=== PATIENT | female | born 1955 | race Caucasian/White ===

== ENCOUNTER → 2016-06-28 | Outpatient (CLI) | payer OTHER ==
[2016-06-28 14:22] LABS: EKG EKG PERFORMED
[2016-06-28 15:13] LABS: Basophils # (A) 0.1 k/uL (0-0.2); Basophils % (A) 1 %; CH 30.1; CHCM 33.8; Eosinophils % (A) 1 %; HCT 40.1 % (34.0-46.0); HGB 13.2 gm/dL (11.4-16.0); Luc # (Auto) 0.11; Luc % (Auto) 2; Lymphocytes # (A) 1.6 k/uL (1.0-4.8); Lymphocytes % (A) 30 %; MCH 29.4 pg (25.0-35.0); MCHC 32.8 g/dL (31.0-37.0); MCV 89.6 fL (80.0-100.0); Mean Platelet Volume 7.2; Monocytes # (A) 0.4 k/uL (0-1.0); Monocytes % (A) 7 %; Neutrophils # (A) 3.1 k/uL (1.3-7.7); Neutrophils % (A) 60 %; RBC 4.47 m/uL (3.80-5.40); RDW 12.5 % (11.5-15.5); WBC 5.2 k/uL (3.8-10.6); WBC (Perox) 5.32
[2016-06-28 15:31] LABS: Anion Gap 10 mmol/L; Blood Urea Nitrogen 16 mg/dL (7-17); Calcium 9.7 mg/dL (8.4-10.2); Carbon Dioxide 29 mmol/L (22-30); Chloride 103 mmol/L (98-107); Glucose 80 mg/dL (74-99); Non-African American GFR(MDRD) >60 (>60 ml/min/1.73 sqM); Potassium 4.3 mmol/L (3.5-5.1); Sodium 142 mmol/L (137-145)
== END | disposition home or self-care (01) ==
LOC: LABPAT 14:08
PROVIDERS: ATTEND Obstetrics & Gynecology
DX: Z01.818 Encounter for other preprocedural examination (principal)
CPT/HCPCS: 80048; 85025; 93005

== ENCOUNTER 2016-07-06 05:51 | Inpatient (IN) | payer OTHER ==
--- NOTE | 2016-07-05 16:54 | P.HPOB ---
History of Present Illness H&P Date: 07/05/16 Chief Complaint: Uterine procidentia This is a 61-year-old female 1 para 1 who presents for total vaginal hysterectomy with anterior and posterior vaginal repair secondary to complete uterine procidentia. She complains of a vaginal mass along with urinary hesitancy. She denies any urinary incontinence, constipation, urinary tract infections, or vaginal irritation. She does complain of urinary frequency. Her symptoms have worsened over the last year. She would like definitive surgical treatment to control her prolapse issues. Pelvic ultrasound showed a uterus measuring 5.2 x 2.1 x 3.3 cm and retroverted. Endometrial stripe measured 3 mm. Both ovaries appeared normal. Obstetrical history: She is . She has a history of 1 vaginal delivery. She also has a set of adopted twins. Gynecologic history: No history of sexual transmitted diseases. Onset of menses was at age 13 and menopause at age 48. Social history: She is . 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 Review of Systems Constitutional: Denies chills, Denies fever Cardiovascular: Denies chest pain, Denies shortness of breath Respiratory: Denies cough Gastrointestinal: Reports constipation (Occasional), Denies nausea, Denies vomiting Genitourinary: Reports difficulty voiding (Occasional urinary hesitancy), Reports pelvic pain, Reports prolapse symptoms, Reports urinary frequency, Denies abnormal vaginal bleeding, Denies stress incontinence, Denies vaginal discharge Menstruation: Reports postmenopausal Musculoskeletal: Denies myalgias Integumentary: Denies pruritus, Denies rash Neurological: Denies numbness, Denies weakness Psychiatric: Denies anxiety, Denies depression Endocrine: Denies fatigue, Denies weight change Past Medical History Past Medical History: Hypertension Additional Past Medical History / Comment(s): change in bowel habits for 5 weeks , just started on BP medication; osteopenia; history of pleurisy History of Any Multi-Drug Resistant Organisms: None Reported Past Surgical History: Tonsillectomy Additional Past Surgical History / Comment(s): Laparoscopy (ENDOMETRIOSIS). Colonoscopy Past Anesthesia/Blood Transfusion Reactions: Previous Problems w/ Anesthesia Additional Past Anesthesia/Blood Transfusion Reaction / Comment(s): Very slow to wake up from anesthesia Past Psychological History: No Psychological Hx Reported Smoking Status: Never smoker Past Alcohol Use History: None Reported Past Drug Use History: None Reported - Past Family History Mother Family Medical History: Cancer Additional Family Medical History / Comment(s): colon Father Family Medical History: Cancer Medications and Allergies Home Medications Medication Instructions Recorded Confirmed Type Lisinopril [Zestril] 5 mg PO QAM 11/04/15 06/28/16 History Multivit with Calcium,Iron,Min 1 each PO DAILY 11/04/15 06/28/16 History [Women's Daily Multivitamin] Allergies Allergy/AdvReac Type Severity Reaction Status Date / Time Penicillins Allergy Anaphylaxis Verified 06/28/16 15:10 Sulfa (Sulfonamide Allergy Rash/Hives Verified 06/28/16 15:10 Antibiotics) Exam Osteopathic Statement: *. No significant issues noted on an osteopathic structural exam other than those noted in the History and Physical/Consult. HEENT: Within normal limits Heart: Regular rate and rhythm Lungs: Clear to auscultation bilaterally Abdomen: Soft, nontender Pelvic exam: There is complete procidentia noted with the uterus everted approximate 1 inch out of the vagina. A grade 3 cystocele and grade 2 rectocele is noted. Cervical os is multiparous with no lesions noted. No adnexal masses are palpated. Extremities: Negative Homans Assessment and Plan (1) Uterine procidentia Status: Acute Plan: Proceed with total vaginal hysterectomy with anterior and posterior vaginal repair. I have discussed the risks, benefits, and alternative therapies for the above- mentioned procedure and for both sedation/anesthesia as well as necessary blood products administration, if indicated, as they pertain to this patient. The patient has indicated her understanding and acceptance of the risks and procedures discussed.
[~2016-07-06 05:51] MED LIST: CLINDAMYCIN 900 MG in DEXTROSE 5% IN WATER 50 ML IVPB ONE; DEXAMETHASONE SOD PHOSPHATE 10 MG/ML 1 ML VIAL IV ONE; GENTAMICIN 280 MG in SODIUM CHLORIDE 0.9% 100 ML IVPB ONE; HYDROmorphone 1 MG/ML 1 ML SYRINGE IVP PRN; MIDAZOLAM 2 MG/2 ML VIAL IV PRN; ONDANSETRON 4 MG/2 ML VIAL IVP ONE; SCOPOLAMINE 1.5MG/72HR PATCH TRANSDERM ONE
[2016-07-06] MEDS ORDERED: LIDOCAINE 1% 20 ML VIAL (10MG/ML) FOR IV START INTRADERMA ONE (06:39)
[2016-07-06] MEDS: LACTATED RINGERS 1,000 ML IV SCH ×3 (06:39→22:38)
[2016-07-06] MEDS ORDERED: fentaNYL (PF) 50 MCG/ML 2 ML AMP IV ONE (06:50)
[2016-07-06] MEDS ORDERED: BACITRACIN 500 UNIT/GM OINT 28.4 GM TUBE TOPICAL ONE (07:19)
[2016-07-06] MEDS ORDERED: EPINEPHrine 1 MG/ML 1 ML AMP SQ ONE (07:19)
[2016-07-06] MEDS ORDERED: EPINEPHrine 1 MG/ML 1 ML AMP IM ONE (07:19)
[2016-07-06] MEDS ORDERED: diphenhydrAMINE 50 MG/ML 1 ML VIAL IVP ONE (07:28)
[2016-07-06] MEDS ORDERED: SUCCINYLCHOLINE CHLORIDE 100 MG/5 ML SYR IV ONE (07:30)
[2016-07-06] MEDS ORDERED: fentaNYL (PF) 50 MCG/ML 2 ML AMP ONE (07:30)
[2016-07-06] MEDS ORDERED: PROPOFOL 10 MG/ML 20 ML VIAL IV ONE (07:30)
[2016-07-06] MEDS ORDERED: LIDOCAINE 1% INJ 10MG/ML (20 ML MDV) ONE (07:30)
[2016-07-06] MEDS ORDERED: MIDAZOLAM 2 MG/2 ML VIAL ONE (07:30)
[2016-07-06] MEDS ORDERED: MORPHINE SULFATE (PF) 0.3 MG/0.3 ML SYR ONE (07:30)
--- NOTE | 2016-07-06 08:51 | P.OP ---
Date of Procedure: 07/06/16 Preoperative Diagnosis: Complete uterine procidentia Postoperative Diagnosis: Same Procedure(s) Performed: Total vaginal hysterectomy with anterior and posterior vaginal colporrhaphy Anesthesia: GETA, spinal (Duramorph) Surgeon: Alisha Perez [employer] Engineer #1: Beto Kinney Estimated Blood Loss (ml): 30 Pathology: other (Uterus with cervix, vaginal mucosa) Condition: stable Disposition: floor Indications for Procedure: This is a 61-year-old female 1 para 1 who presents for total vaginal hysterectomy with anterior and posterior vaginal repair secondary to complete uterine procidentia. She complains of a vaginal mass along with urinary hesitancy. She denies any urinary incontinence, constipation, urinary tract infections, or vaginal irritation. She does complain of urinary frequency. Her symptoms have worsened over the last year. She would like definitive surgical treatment to control her prolapse issues. Pelvic ultrasound showed a uterus measuring 5.2 x 2.1 x 3.3 cm and retroverted. Endometrial stripe measured 3 mm. Both ovaries appeared normal. Operative Findings: Complete uterine procidentia is noted with the uterus protruding through the vagina at least 1-2 inches. Grade 3 cystocele is noted. Grade 2 rectocele is noted. Description of Procedure: The patient is taken the operating room where she is placed in the dorsal lithotomy position. She is prepped and draped in the normal sterile fashion. Next a weighted speculum was placed in the patient's vagina and a right angle retractor was used to visualize the cervix. The anterior lip of the cervix is grasped with a single-tooth tenaculum. Next the cervix was circumferentially injected with one amp of epinephrine to 150 mL of normal saline. Next the cervix was circumscribed with a scalpel. The vaginal mucosa was pushed away from the cervix with a sponge. Next the uterosacral ligaments are clamped on either side with a Darcie clamp, cut with Roth scissors, and then sutured with 0 Vicryl suture in a Darcie transfixion stitch and then held on either side with a straight hemostat. Next the posterior peritoneal reflection was identified and entered sharply with Roth scissors. The edges of the vaginal mucosa was then tagged with 0 Vicryl suture and held with a curved hemostat for identification. Next a longbilled weighted speculum was placed through the posterior peritoneal reflection. Next the cardinal ligaments were clamped on either side with Darcie clamps, cut with Roth scissors, and then sutured with 0 Vicryl suture in Darcie transfixion stitches and cut. Next the vesicouterine peritoneum reflection is identified and entered sharply with Metzenbaum scissors. A right angle bladder retractor is then used to retract the bladder. The uterine arteries are clamped on either side with Darcie clamps, cut with Roth scissors, and then sutured with 0 Vicryl suture in Darcie transfixion stitches. The round ligament is also clamped on either side with a Darcie clamp , cut with Roth scissors, and sutured with 0 Vicryl suture in Darcie transfixion stitches. Next the uterine ovarian ligament and tube were clamped on either side with a Darcie clamp, cut with Roth scissors, and then sutured with 0 Vicryl suture in a [id number] stitch, flashed, and then free tied with another suture of 0 Vicryl suture. These pedicles were held with a straight Abimbola for identification. The uterus is removed from the field. Excellent hemostasis is noted. A moist sponge stick was placed into the peritoneal cavity and no abnormalities are visualized. Neither ovary is specifically visualized. Next the peritoneum is closed with 0 Vicryl suture in a pursestring fashion incorporating all the held ligaments. Next the uterine ovarian ligaments are tied together in the middle and cut. Next attention was turned to the cystocele repair. The edges of the vaginal mucosa are held with 2 Allis clamps. Next injection of the same epinephrine solution is injected underneath the mucosa upwards towards the urethra. Metzenbaum scissors were used to dissect underneath the vaginal mucosa and cut along the way up to just below the urethra. Sharp and blunt dissection are used to dissect the bladder away from the vaginal mucosa. Once the bladder is freed, the cystocele is reduced with 0 Vicryl suture in [id number] stitches on either side of the cystocele. Next the edges of the vaginal mucosa are trimmed with Metzenbaum scissors. Next the vaginal mucosa is sutured with 0 Vicryl suture in a running locked fashion incorporating the vaginal cuff. The previously held uterosacral ligaments are cut. Excellent hemostasis is noted. Next attention is turned to the posterior repair. 2 Allis clamps are used to grasp the introitus at the 4 and 8 o'clock position. Next injection of the same epinephrine solution is injected underneath the vaginal cuff upwards towards the vaginal cuff. Next a small triangle a piece of tissue is removed with a scalpel between the 2 Allis clamps on the perineum. Next Metzenbaum scissors were used to dissect underneath the vaginal mucosa upwards towards the vaginal cuff. The edges of the vaginal mucosa are held with Allis clamps. The rectocele is dissected away from the vaginal mucosa with sharp and blunt dissection. Next the rectocele is reduced with 0 Vicryl suture in interrupted [id number] stitches. Next the edges of the vaginal mucosa are trimmed with Metzenbaum scissors. The vaginal mucosa was then sutured with 0 Vicryl suture in a running locked fashion up to the introitus and then brought underneath the skin in a running fashion and then on the skin on the perineum in a subcuticular fashion and tied at the introitus. Excellent hemostasis is noted. The Gonsalves catheter is inserted and clear urine is noted. Next the vagina is packed with one-inch iodoform gauze with bacitracin ointment. All sponge and needle counts are correct and the patient is then taken to recovery room in stable condition.
[2016-07-06] MEDS ORDERED: diphenhydrAMINE 50 MG/ML 1 ML VIAL IVP PRN ×2 (09:36→10:23)
[2016-07-06] MEDS ORDERED: MORPHINE SULFATE 4 MG/ML SYRINGE IVP PRN (09:36)
[2016-07-06] MEDS ORDERED: NALOXONE 0.4 MG/ML 1 ML VIAL IV PRN (09:36)
[2016-07-06] MEDS ORDERED: ONDANSETRON 4 MG/2 ML VIAL IVP PRN ×2 (09:36→10:23)
[2016-07-06] MEDS ORDERED: IBUPROFEN 600 MG TAB PO PRN (10:23)
[2016-07-06] MEDS ORDERED: ZOLPIDEM 5 MG TAB PO PRN (10:23)
[2016-07-06] MEDS ORDERED: METOCLOPRAMIDE 5 MG/ML 2 ML VIAL IVP PRN (10:23)
[2016-07-06] MEDS ORDERED: SIMETHICONE 80 MG CHEWABLE PO PRN (10:23)
[2016-07-06] MEDS ORDERED: LISINOPRIL 2.5 MG TAB PO SCH (10:23)
[2016-07-06] MEDS ORDERED: KETOROLAC 30 MG/ML 1 ML VIAL IVP PRN (10:23)
[2016-07-06] MEDS ORDERED: Acetaminophen-Codeine 300-30mg TAB PO PRN ×2 (10:23)
[2016-07-06 18:35] VITALS: RESP 16
[2016-07-06] MEDS: SENNOSIDES-DOCUSATE SODIUM 1 EACH TAB PO SCH ×2 (19:48→19:51)
[2016-07-06] MEDS: LISINOPRIL 5 MG TAB PO SCH (19:49)
[2016-07-07] MEDS ORDERED: ACETAMINOPHEN TAB 325 MG TAB PO PRN (07:39)
--- NOTE | 2016-07-07 08:27 | P.PN ---
Subjective Principal diagnosis: Status post total vaginal hysterectomy with anterior and posterior repair postoperative day #1 Patient is doing well. She has almost no pain. Her catheter was just remove this morning. She has not urinated yet. She is passing flatus but no bowel movement. She is tolerating regular diet with no nausea or vomiting. She only has scant vaginal discharge. Objective - Vital Signs Vital signs: Vital Signs Temp 98.7 F 07/07/16 08:00 Pulse 94 07/07/16 08:00 Resp 16 07/07/16 08:00 BP 103/55 07/07/16 08:00 Pulse Ox 95 07/07/16 08:00 Intake & Output 07/06/16 07/07/16 07/07/16 18:59 06:59 18:59 Intake Total 1113 1300 Output Total 730 1575 Balance 383 -275 Intake: IV 1113 1000 Lactated Ringers 1,000 ml 1000 @ 20 mls/hr IV .Q24H KAZ Rx#:[id number] Other 300 Output: Urine 700 1575 Uretheral (Gonsalves) 625 Estimated Blood Loss 30 - Gastrointestinal General gastrointestinal: Present: normal bowel sounds, soft. Absent: tenderness - Genitourinary Genitourinary Comment(s): Very minimal serosanguineous discharge noted on ke-pad. Assessment and Plan (1) Uterine procidentia Narrative/Plan: Impression is status post total vaginal hysterectomy with anterior and posterior vaginal repair postoperative day #1 Status: Acute Plan: Will continue to ambulate and await urination. Advised I will come back later on today and see if she is able to go home later this afternoon.
[2016-07-07] MEDS: LISINOPRIL 5 MG TAB PO SCH (09:21)
[2016-07-07] MEDS: SENNOSIDES-DOCUSATE SODIUM 1 EACH TAB PO SCH (09:22)
[2016-07-07 09:35] LABS: Basophils % (A) 0 %; CH 30.3; CHCM 34.3; Eosinophils % (A) 0 %; HCT 33.7 % (34.0-46.0); HDW 2.39; HGB 11.5 gm/dL (11.4-16.0); Luc % (Auto) 1; Lymphocytes # (A) 0.9 k/uL (1.0-4.8); Lymphocytes % (A) 9 %; MCH 30.1 pg (25.0-35.0); MCV 88.6 fL (80.0-100.0); Mean Platelet Volume 7.8; Monocytes # (A) 0.8 k/uL (0-1.0); Monocytes % (A) 8 %; Neutrophils # (A) 8.3 k/uL (1.3-7.7); Neutrophils % (A) 82 %; RBC 3.81 m/uL (3.80-5.40); RDW 12.4 % (11.5-15.5); WBC 10.2 k/uL (3.8-10.6); WBC (Perox) 10.73
--- NOTE | 2016-07-07 12:49 | P.DS ---
Providers Date of admission: 07/06/16 05:51 Expected date of discharge: 07/07/16 Attending physician: Alisha Perez Primary care physician: Nish Soto - Discharge Diagnosis(es) (1) Uterine procidentia Current Visit: Yes Status: Acute Hospital Course: This is a 61-year-old female who underwent a total vaginal hysterectomy with anterior and posterior vaginal repair on 07/06/2016. Postoperatively she is doing well. Her pain is well controlled with just ibuprofen. She is ambulating. She is urinating without difficulty. She denies any leakage of urine. Her vaginal bleeding is minimal. She is passing flatus but no bowel movement yet. Vital signs are stable. Abdomen is soft with positive bowel sounds 4. Xiomara-pad shows scant serous and was discharged. Impression is status post total vaginal hysterectomy with anterior and posterior vaginal repair postoperative day #1. Plan is to discharge home today. She is given routine postoperative instructions. She will be given a prescription for ibuprofen 600 mg every 6 hours as needed. She is advised to follow up in the office in 1 week for a postoperative check. She is advised to call the office if she has any further questions or concerns prior to her appointment time. Procedures: Total vaginal hysterectomy with anterior and posterior vaginal repair on 2016 Patient Condition at Discharge: Stable Plan - Discharge Summary New Discharge Prescriptions: Ibuprofen [Motrin] 600 mg PO Q6HR PRN #60 tab PRN Reason: Mild Discomfort Discharge Medication List Lisinopril [Zestril] 5 mg PO QAM 11/04/15 [History] Multivit with Calcium,Iron,Min [Women's Daily Multivitamin] 1 tab PO DAILY 11/03 [History] Ibuprofen [Motrin] 600 mg PO Q6HR PRN #60 tab 07/07/16 [Rx] Follow up Appointment(s)/Referral(s): Alisha Perez DO [Doctor of Osteopathic Medicine] - 1 Week Activity/Diet/Wound Care/Special Instructions: No heavy lifting. May shower, but no tub baths. No intercourse. Diet as tolerated. Discharge Disposition: HOME SELF-CARE
[2016-07-07 13:34] VITALS: BP 116/70; PULSE 60; TEMP 98.4
== END 2016-07-07 13:45 | disposition home or self-care (01) | DRG 743 ==
LOC: 2ORMAIN 05:51 → 4FBP 08:44
PROVIDERS: ADMIT Obstetrics & Gynecology; ATTEND Obstetrics & Gynecology
PROC: 0UT97ZZ Resection of Uterus, Via Natural or Artificial Opening (ICD-10-PCS; principal; 2016-07-06 07:30)
PROC: 0JQC3ZZ Repair Pelvic Region Subcutaneous Tissue and Fascia, Percutaneous Approach (ICD-10-PCS; principal; 2016-07-06 07:30)
PROC: 0UTC7ZZ Resection of Cervix, Via Natural or Artificial Opening (ICD-10-PCS; principal; 2016-07-06 07:30)
DX: N81.3 Complete uterovaginal prolapse (principal); I10 Essential (primary) hypertension; M85.80 Other specified disorders of bone density and structure, unspecified site; Z79.899 Other long term (current) drug therapy; Z88.0 Allergy status to penicillin; Z88.2 Allergy status to sulfonamides
CPT/HCPCS: 85025; 86850; 86900; 86901; 88302; 88305

== ENCOUNTER → 2017-06-22 | Outpatient (CLI) | payer OTHER ==
--- NOTE | 2017-06-22 09:27 | MM ---
Reason for exam: additional evaluation requested from abnormal screening. Last mammogram was performed less than 1 month ago. History: Patient is postmenopausal and had first child at age 33. Took hormonal contraceptives for 2 years beginning at age 20. Physical Findings: Nurse did not find any significant physical abnormalities on exam. MG Work Up Mamm w CAD RT Spot compression CC and LM view(s) were taken of the right breast. Prior study comparison: June 07, 2017, bilateral MG screening mammo w CAD. May 12, 2016, bilateral MG screening mammo w CAD. There is no discrete abnormality in the right breast. Ultrasound of the left breast recommended. These results were verbally communicated with the patient and result sheet given to the patient on 06/22/17. ASSESSMENT: Incomplete: need additional imaging evaluation, BI-RAD 0 RECOMMENDATION: Ultrasound. (left)
--- NOTE | 2017-06-22 09:28 | USB ---
Reason for exam: additional evaluation requested from abnormal screening. History: Patient is postmenopausal and had first child at age 33. Took hormonal contraceptives for 2 years beginning at age 20. US Breast Workup Limited LT Left breast ultrasound demonstrates a 1.6 x 0.5 x 1.2cm cystic cluster at 4 o'clock. These results were verbally communicated with the patient and result sheet given to the patient on 06/22/17. ASSESSMENT: Benign, BI-RAD 2 RECOMMENDATION: Return to routine screening mammogram schedule for both breasts.
== END | disposition home or self-care (01) ==
LOC: RADMAMWWP 08:18
PROVIDERS: ATTEND Obstetrics & Gynecology
DX: R92.8 Other abnormal and inconclusive findings on diagnostic imaging of breast (principal)
CPT/HCPCS: 77065

== ENCOUNTER → 2018-12-25 | Outpatient (CLI) | payer OTHER ==
--- NOTE | 2018-12-26 10:27 | MM ---
Reason for exam: screening (asymptomatic). Last mammogram was performed 1 year and 6 months ago. History: Patient is postmenopausal and had first child at age 33. Took hormonal contraceptives for 2 years beginning at age 20. Physical Findings: A clinical breast exam by your physician is recommended on an annual basis and results should be correlated with mammographic findings. MG Screening Mammo w CAD Bilateral CC and MLO view(s) were taken. Prior study comparison: June 22, 2017, right breast MG work up mamm w CAD RT. June 07, 2017, bilateral MG screening mammo w CAD. The breast tissue is heterogeneously dense. This may lower the sensitivity of mammography. There is chronic nodularity in the left breast. Asymmetric breast tissue right CC view, stable. There is no discrete abnormality. ASSESSMENT: Benign, BI-RAD 2 RECOMMENDATION: Routine screening mammogram of both breasts in 1 year.
== END | disposition home or self-care (01) ==
LOC: RADMAMWWP 07:41
PROVIDERS: ATTEND Obstetrics & Gynecology
DX: Z12.31 Encounter for screening mammogram for malignant neoplasm of breast (principal)
CPT/HCPCS: 77067

== ENCOUNTER → 2020-07-07 | Outpatient (CLI) | payer MEDICARE ==
--- NOTE | 2020-07-08 09:30 | MM ---
Reason for exam: screening (asymptomatic). Last mammogram was performed 1 year and 6 months ago. History: Patient is postmenopausal and had first child at age 33. Took hormonal contraceptives for 2 years beginning at age 20. Physical Findings: A clinical breast exam by your physician is recommended on an annual basis and results should be correlated with mammographic findings. MG 3D Screening Mammo W/Cad Bilateral CC and MLO view(s) were taken. Prior study comparison: December 25, 2018, bilateral MG screening mammo w CAD. June 22, 2017, right breast MG work up mamm w CAD RT. The breast tissue is heterogeneously dense. This may lower the sensitivity of mammography. Nodule upper outer left breast is new and left retroareolar breast. ASSESSMENT: Incomplete: need additional imaging evaluation, BI-RAD 0 RECOMMENDATION: Ultrasound of the left breast. [facility] will attempt to contact patient to return for ultrasound.
== END | disposition home or self-care (01) ==
LOC: RADMAMWWP 08:52
PROVIDERS: ATTEND Obstetrics & Gynecology
DX: Z12.31 Encounter for screening mammogram for malignant neoplasm of breast (principal)
CPT/HCPCS: 77063; 77067

== ENCOUNTER → 2020-07-14 | Outpatient (CLI) | payer MEDICARE ==
--- NOTE | 2020-07-14 09:12 | USB ---
Reason for exam: additional evaluation requested from abnormal screening. History: Patient is postmenopausal and had first child at age 33. Took hormonal contraceptives for 2 years beginning at age 20. Physical Findings: Nurse Summary: left palpable 4 o'clock at nipple, movable, 1 x 1cm, tender (nurse ts). US Breast Workup Limited LT Left limited breast ultrasound including focal area of concern, retroareolar and axilla demonstrates a 10 x 7 x 11mm cystic lesion at 4 o'clock and a 8 x 5 x 11mm cystic cluster at 4 o'clock. These results were verbally communicated with the patient and result sheet given to the patient on 07/14/20. ASSESSMENT: Probably benign, BI-RAD 3 RECOMMENDATION: Return to routine screening mammogram schedule for both breasts.
== END | disposition home or self-care (01) ==
LOC: RADUSWWP 07:47
PROVIDERS: ATTEND Obstetrics & Gynecology
DX: R92.8 Other abnormal and inconclusive findings on diagnostic imaging of breast (principal)

== ENCOUNTER 2021-04-26 17:22 | Emergency (ER) | payer MEDICARE, OTHER ==
--- NOTE | 2021-04-26 19:15 | ED ---
General Adult HPI - General Chief complaint: Upper Respiratory Infection Stated complaint: Fever/cough Time Seen by Provider: 04/26/21 19:04 Source: patient Mode of arrival: ambulatory Limitations: no limitations - History of Present Illness Initial comments: Dictation was produced using [employer] dictation software. please excuse any grammatical, word or spelling errors. Chief Complaint: 66-year-old female with no significant past medical history presents emergency department for symptoms of coronavirus. History of Present Illness: Patient [age]-old female she's been symptomatic with URI symptoms for the last 4 days. She's been exposed to other individuals covered. She was tested recently at an urgent care had a negative result. She is here today for a retest and possible monoclonal antibodies. Denies any significant comorbidities. She does have some shortness of breath, mild cough and nasal congestion. The ROS documented in this emergency department record has been reviewed and confirmed by me. Those systems with pertinent positive or negative responses have been documented in the HPI. All other systems are other negative and/or noncontributory. PHYSICAL EXAM: General Impression: Alert and oriented x3, not in acute distress HEENT: Normocephalic atraumatic, extra-ocular movements intact, pupils equal and reactive to light bilaterally, mucous membranes moist. Cardiovascular: Heart regular rate and rhythm Chest: Able to complete full sentences, no retractions, no tachypnea Abdomen: abdomen soft, non-tender, non-distended, no organomegaly Musculoskeletal: Pulses present and equal in all extremities, no peripheral edema Motor: no focal deficits noted Neurological: CN II-XII grossly intact, no focal motor or sensory deficits noted Skin: Intact with no visualized rashes Psych: Normal affect and mood ED course: 66-year-old female presents to the emergency department for symptoms of coronavirus. As upon arrival shows 94% on room air, rest of vital signs within acceptable limits. Ambulatory pulse ox is 94-95%. Not showing any signs of significant respiratory distress. Coronavirus test is positive. Patient is agreeable for monoclonal antibodies. She'll be given infusion and observed for one hour post infusion. Patient received infusion with no couple patient's. Patient discharged. - Related Data Home Medications Medication Instructions Recorded Confirmed Multivit with Calcium,Iron,Min 1 tab PO DAILY 11/04/15 07/06/16 [Women's Daily Multivitamin] lisinopriL [Zestril] 5 mg PO QAM 11/04/15 07/06/16 Previous Rx's Medication Instructions Recorded Ibuprofen [Motrin] 600 mg PO Q6HR PRN #60 tab 07/07/16 Allergies Allergy/AdvReac Type Severity Reaction Status Date / Time Penicillins Allergy Anaphylaxis Verified 04/26/21 18:12 Sulfa (Sulfonamide Allergy Rash/Hives Verified 04/26/21 18:12 Antibiotics) Review of Systems ROS Statement: Those systems with pertinent positive or pertinent negative responses have been documented in the HPI. ROS Other: All systems not noted in ROS Statement are negative. Past Medical History Past Medical History: Hypertension Additional Past Medical History / Comment(s): change in bowel habits for 5 weeks, just started on BP medication History of Any Multi-Drug Resistant Organisms: None Reported Past Surgical History: Tonsillectomy Additional Past Surgical History / Comment(s): laparoscopy, colonoscopy Past Anesthesia/Blood Transfusion Reactions: Previous Problems w/ Anesthesia Additional Past Anesthesia/Blood Transfusion Reaction / Comment(s): very slow to wake up from anesthesia Past Psychological History: No Psychological Hx Reported Smoking Status: Never smoker Past Alcohol Use History: None Reported Past Drug Use History: None Reported - Past Family History Mother Family Medical History: Cancer Additional Family Medical History / Comment(s): colon Father Family Medical History: Cancer General Exam Limitations: no limitations Course Vital Signs 04/26/21 04/26/21 04/26/21 18:10 19:50 20:53 Temperature 97.9 F Pulse Rate 96 82 Respiratory 20 20 18 Rate Blood Pressure 124/77 133/78 O2 Sat by Pulse 94 L 94 L Oximetry Medical Decision Making - Lab Data Lab Results 04/26/21 Range/Units 18:16 Coronavirus (PCR) Detected A (Not Detectd) Disposition Clinical Impression: COVID-19 Disposition: HOME SELF-CARE Condition: Fair Instructions (If sedation given, give patient instructions): Coronavirus Disease 2019 (COVID-19) Is patient prescribed a controlled substance at d/c from ED?: No Referrals: Nish Soto III, MD [Primary Care Provider] - 1-2 days
[2021-04-26] MEDS ORDERED: SODIUM CHLORIDE 0.9% 50 ML IVPB ONE (20:00)
[2021-04-26] MEDS ORDERED: CASIRIVIMAB/IMDEVIMAB (EUA) 1,200 MG in SODIUM CHLORIDE 0.9% 100 ML IVPB ONE (20:00)
[2021-04-26 20:54] VITALS: RESP 18
[2021-04-26 21:52] VITALS: BP 142/81; PULSE 84; TEMP 99
== END 2021-04-26 21:52 | disposition home or self-care (01) ==
LOC: EC 17:22
DX: U07.1 COVID-19 (principal); I10 Essential (primary) hypertension; Z88.0 Allergy status to penicillin; Z88.2 Allergy status to sulfonamides; Z79.899 Other long term (current) drug therapy
CPT/HCPCS: 99283 ×2; 87635; M0243; Q0243

== ENCOUNTER → 2021-07-10 | Outpatient (CLI) | payer MEDICARE ==
--- NOTE | 2021-07-13 10:15 | MM ---
Reason for exam: screening (asymptomatic). Last mammogram was performed 1 year ago. History: Patient is postmenopausal and had first child at age 33. Took hormonal contraceptives for 2 years beginning at age 20. Physical Findings: A clinical breast exam by your physician is recommended on an annual basis and results should be correlated with mammographic findings. MG 3D Screening Mammo W/Cad Bilateral CC and MLO view(s) were taken. Prior study comparison: July 07, 2020, bilateral MG 3d screening mammo w/cad. December 25, 2018, bilateral MG screening mammo w CAD. The breast tissue is heterogeneously dense. This may lower the sensitivity of mammography. There is chronic nodularity in the left breast. There is no discrete abnormality. ASSESSMENT: Benign, BI-RAD 2 RECOMMENDATION: Routine screening mammogram of both breasts in 1 year.
== END | disposition home or self-care (01) ==
LOC: RADMAMWWP 09:03
PROVIDERS: ATTEND Obstetrics & Gynecology
DX: Z12.31 Encounter for screening mammogram for malignant neoplasm of breast (principal); Z78.0 Asymptomatic menopausal state
CPT/HCPCS: 77063; 77067

== ENCOUNTER → 2021-10-09 | Outpatient (CLI) | payer MEDICARE, OTHER ==
--- NOTE | 2021-10-09 10:44 | XR ---
EXAMINATION TYPE: XR KUB DATE OF EXAM: 10/09/2021 10:36 AM CLINICAL HISTORY: Hematuria. TECHNIQUE: Two supine KUB images of the abdomen are obtained. COMPARISON: None. FINDINGS: Scattered gas is seen in non-distended small bowel loops. Gas and fecal material is seen in non-distended colon. Possible 2-3 upper pole left renal calculi measuring up to 5 mm near the level of the left L1 transverse process. Lung bases are grossly clear. Visualized osseous structures are in tact. IMPRESSION: Possible upper pole left-sided nephrolithiasis. Advise CT follow-up.
== END | disposition home or self-care (01) ==
LOC: RADXRWHC 10:18
PROVIDERS: ATTEND Urology
DX: N20.0 Calculus of kidney (principal)
CPT/HCPCS: 74018

== ENCOUNTER 2021-10-20 07:55 | Day surgery (SDC) | payer MEDICARE ==
[2021-10-16 16:11] VITALS: BMI 25.4
[~2021-10-20 07:55] MED LIST changes: -CLINDAMYCIN 900 MG in DEXTROSE 5% IN WATER 50 ML IVPB ONE; -DEXAMETHASONE SOD PHOSPHATE 10 MG/ML 1 ML VIAL IV ONE; -GENTAMICIN 280 MG in SODIUM CHLORIDE 0.9% 100 ML IVPB ONE; -HYDROmorphone 1 MG/ML 1 ML SYRINGE IVP PRN; +LACTATED RINGERS 1,000 ML IV SCH; -MIDAZOLAM 2 MG/2 ML VIAL IV PRN; -ONDANSETRON 4 MG/2 ML VIAL IVP ONE; -SCOPOLAMINE 1.5MG/72HR PATCH TRANSDERM ONE
[2021-10-20 08:20] VITALS: TEMP 97.6
[2021-10-20] MEDS ORDERED: PROPOFOL 10 MG/ML 20 ML VIAL IV ONE (08:56)
--- NOTE | 2021-10-20 09:24 | P.PCN ---
Date of Procedure: 10/20/21 Procedure(s) Performed: BRIEF HISTORY: Patient is a 66-year-old pleasant white female scheduled for an elective colonoscopy as a part of screening for colorectal neoplasia and family history of colon cancer. Her mother was diagnosed with colon cancer at age 70. PROCEDURE PERFORMED: Colonoscopy. PREOPERATIVE DIAGNOSIS: Screening for colon cancer and family history of colon cancer. IV sedation per Anesthesia. PROCEDURE: After informed consent was obtained, the patient, was brought into the endoscopy unit. IV sedation was administered by Anesthesia under continuous monitoring. Digital rectal examination was normal. Initially the Olympus CF-160 flexible video colonoscope was then inserted in the rectum, gradually advanced into the cecum without any difficulty. Careful examination was performed as the scope was gradually being withdrawn. Ileocecal valve and the appendiceal orifice were visualized and appeared normal. Prep was excellent. Mucosa of the cecum, ascending colon, transverse colon, descending colon, sigmoid colon, and rectum appeared normal. Scattered sigmoid diverticulosis. Retroflexion was performed in the rectum and no lesions were seen. The patient tolerated the procedure well. IMPRESSION: Normal-appearing colon from rectum to cecum no evidence of colorectal neoplasia. Scattered sigmoid diverticulosis. RECOMMENDATIONS: Findings of this examination were discussed with the patient as well as her family. She was advised to have a repeat screening colonoscopy i n 5 years from now because of the family history of colon cancer
[2021-10-20 09:44] VITALS: BP 132/86; PULSE 57; RESP 20
== END 2021-10-20 10:31 | disposition home or self-care (01) ==
LOC: ORWHC2ENDO 07:55
PROVIDERS: ATTEND Internal Medicine Gastroenterology
DX: Z12.11 Encounter for screening for malignant neoplasm of colon (principal); K57.30 Diverticulosis of large intestine without perforation or abscess without bleeding; Z80.0 Family history of malignant neoplasm of digestive organs; Z79.899 Other long term (current) drug therapy; E78.5 Hyperlipidemia, unspecified; I10 Essential (primary) hypertension; Z88.0 Allergy status to penicillin; Z88.2 Allergy status to sulfonamides
CPT/HCPCS: J2704; G0105

== ENCOUNTER → 2021-10-23 | Outpatient (CLI) | payer MEDICARE, OTHER ==
--- NOTE | 2021-10-23 13:32 | CT ---
EXAMINATION TYPE: CT abdomen pelvis wo con DATE OF EXAM: 10/23/2021 COMPARISON: None HISTORY: Hematuria CT DLP: 382.40 mGycm Automated exposure control for dose reduction was used. TECHNIQUE: Helical acquisition of images was performed from the lung bases through the pelvis. FINDINGS: The visualized lung bases are clear. There is no gallstone in the gallbladder is not distended. There are no renal, ureteral or urinary bladder calcifications. There is no hydronephrosis. There is no organomegaly involving the liver, pancreas, spleen or adrenal glands. The bowel loops are normal in size and there is no dilatation or obstruction. There is diverticulosis of the colon but no CT evidence of diverticulitis. There is no free intraperitoneal air or fluid. There is no pelvic mass or adenopathy. There are surgical absence of uterus. The osseous structures are intact. IMPRESSION: No significant abnormality seen. Incidental note is made of hysterectomy.
== END | disposition home or self-care (01) ==
LOC: RADCTMAIN 12:51
PROVIDERS: ATTEND Urology
DX: R31.1 Benign essential microscopic hematuria (principal)
CPT/HCPCS: 74176

== ENCOUNTER → 2022-07-12 | Outpatient (CLI) | payer MEDICARE, OTHER ==
--- NOTE | 2022-07-13 08:37 | MM ---
Reason for Exam: Screening (asymptomatic). Last screening mammogram was performed 12 month(s) ago. Patient History: Menarche at age 13. First Full-Term at age 33. Late child-bearing (after 30). Hysterectomy at age 62. Postmenopausal. Hormonal Contraceptives for 2 years from age 20 until age 22. Risk Values: Shyann 5 year model risk: 2.1%. NCI Lifetime model risk: 6.9%. Prior Study Comparison: 12/25/2018 Bilateral Screening Mammogram, [facility]. 07/07/2020 Bilateral Screening Mammogram, [facility]. 07/10/2021 Bilateral Screening Mammogram, [facility]. Tissue Density: The breast tissue is heterogeneously dense. This may lower the sensitivity of mammography. Findings: Analyzed By CAD. There is no suspicious group of microcalcifications or new suspicious mass in either breast. Overall Assessment: Negative, BI-RAD 1 Management: Screening Mammogram of both breasts in 1 year. A clinical breast exam by your physician is recommended on an annual basis and results should be correlated with mammographic findings. [facility] will attempt to contact patient to return for supplemental views and ultrasound if indicated. Electronically signed and approved by: Brian Quintero DO
== END | disposition home or self-care (01) ==
LOC: RADMAMWWP 09:07
PROVIDERS: ATTEND Obstetrics & Gynecology
DX: Z12.31 Encounter for screening mammogram for malignant neoplasm of breast (principal); Z78.0 Asymptomatic menopausal state
CPT/HCPCS: 77063; 77067

== ENCOUNTER → 2022-08-27 | Outpatient (CLI) | payer MEDICARE, OTHER ==
--- NOTE | 2022-08-27 11:37 | BD ---
EXAMINATION TYPE: Axial Bone Density DATE OF EXAM: 08/27/2022 CLINICAL HISTORY: 67 years old Female. ICD-10 CODE: M85.88 Height: 61.7 in Weight: 148 lbs FRAX RISK QUESTIONS: Family History (Parent hip fracture): yes mother RISK FACTORS HISTORY OF: Family History of Osteoporosis: yes mother Active: yes Diet low in dairy products/other sources of calcium: yes Postmenopausal woman: total hysterectomy age 47 MEDICATIONS: Osteoporosis Medications: not now Which medication: Fosamax How Lon months Additional Medications: calcium, vit d, losartan EXAM MEASUREMENTS: Bone mineral densitometry was performed using the [employer] Software System. Bone mineral density as measured about the Lumbar spine is: ----- L1-L4(G/cm2): 0.990 T Score Values are as follows: ----- L1: -1.0 ----- L2: -1.8 ----- L3: -1.6 ----- L4: -2.0 ----- L1-L4: -1.6 Z Score Values are as follows: ----- L1: 0.6 ----- L2: -0.2 ----- L3: -0.1 ----- L4: -0.4 ----- L1-L4: 0.0 Bone mineral density has: Increased 4.2% since study of: 11/13/2012 Bone mineral density about the R hip (g/cm2): 0.776 Bone mineral density about the L hip (g/cm2): 0.752 T Score values are as follows: -----R Neck: -2.0 -----L Neck: -2.2 -----R Total: -1.8 -----L Total: -2.0 Z Score values are as follows: -----R Neck: -0.4 -----L Neck: -0.6 -----R Total: -0.5 -----L Total: -0.7 Bone mineral density has: Decreased -3.3% since study of: 11/13/2012 FRAX%s: The graph provided illustrates a 20.6 chance for a major osteoporotic fx and a 4.3 chance for the hips probability for fx in 10 years time. IMPRESSION: Osteopenia (T Score between -2.5 and -1). There is slightly increased risk of fracture and the patient may be considered for treatment. Re-Screen 2-5 years. NOTE: T-SCORE=SD OF THE YOUNG ADULT MEAN.
== END | disposition home or self-care (01) ==
LOC: RADBDWWP 10:35
PROVIDERS: ATTEND Obstetrics & Gynecology
DX: M85.89 Other specified disorders of bone density and structure, multiple sites (principal)
CPT/HCPCS: 77080

== ENCOUNTER → 2023-08-02 | Outpatient (CLI) | payer MEDICARE, OTHER ==
--- NOTE | 2023-08-03 08:46 | MM ---
Reason for Exam: Screening (asymptomatic). Last mammogram was performed 1 year(s) and 1 month(s) ago. Patient History: Menarche at age 13. First Full-Term at age 33. Late child-bearing (after 30). Hysterectomy at age 62. Postmenopausal. Hormonal Contraceptives for 2 years from age 20 until age 22. Risk Values: Shyann 5 year model risk: 2.2%. NCI Lifetime model risk: 6.6%. Prior Study Comparison: 07/07/2020 Bilateral Screening Mammogram, [facility]. 07/10/2021 Bilateral Screening Mammogram, [facility]. 07/12/2022 Bilateral MG 3D screening mammo w/cad, [facility]. Tissue Density: The breast tissue is heterogeneously dense. This may lower the sensitivity of mammography. Findings: Analyzed By CAD. There is no suspicious group of microcalcifications or new suspicious mass in either breast. Benign calcifications. Stable chronic nodularity bilaterally. There is an asymmetric nodular density in the posterior right breast seen centrally on the cc view. Recommend spot compression view and rolled medial cc view. Overall Assessment: Incomplete: need additional imaging evaluation, BI-RAD 0 Management: Special View Mammogram of the right breast. . Patient should continue monthly self-breast exams. A clinical breast exam by your physician is recommended on an annual basis. This exam should not preclude additional follow-up of suspicious palpable abnormalities. Note on Shyann scores and lifetime risk: 1. A Shyann score greater than 3% is considered moderate risk. If this is the case, consider specialist referral to assess eligibility for a risk reducing agent. 2. If overall lifetime risk for the development of breast cancer is 20% or higher, the patient may qualify for future screening with alternating mammogram and breast MRI. Electronically signed and approved by: Nikolai Bedoya M.D. Radiologis
== END | disposition home or self-care (01) ==
LOC: RADMAMWWP 10:43
PROVIDERS: ATTEND Obstetrics & Gynecology
DX: Z12.31 Encounter for screening mammogram for malignant neoplasm of breast (principal); Z78.0 Asymptomatic menopausal state
CPT/HCPCS: 77063; 77067

== ENCOUNTER → 2023-08-04 | Outpatient (CLI) | payer MEDICARE, OTHER ==
--- NOTE | 2023-08-04 08:45 | MM ---
Reason for Exam: Additional evaluation requested from abnormal screening. Last screening mammogram was performed less than 1 month ago. Patient History: Menarche at age 13. First Full-Term at age 33. Late child-bearing (after 30). Hysterectomy at age 62. Postmenopausal. Hormonal Contraceptives for 2 years from age 20 until age 22. Risk Values: Shyann 5 year model risk: 2.2%. NCI Lifetime model risk: 6.6%. Tissue Density: Right: The breast tissue is heterogeneously dense. This may lower the sensitivity of mammography. Findings: Analyzed By CAD. There is a 6 mm nodular asymmetric density outer aspect of the right breast on the cc view which persists with spot compression, posterior depth. However, not clearly identified on the 3-D lateral view or the 3-D cc rolled view. Further ultrasound evaluation is recommended. Overall Assessment: Incomplete: need additional imaging evaluation, BI-RAD 0 Management: Diagnostic Breast Ultrasound of the right breast. Electronically signed and approved by: Alexander Alvarez M.D. Radiologist
--- NOTE | 2023-08-04 09:56 | USB ---
Reason for Exam: Additional evaluation requested from abnormal screening. Patient History: Menarche at age 13. First Full-Term at age 33. Late child-bearing (after 30). Hysterectomy at age 62. Postmenopausal. Hormonal Contraceptives for 2 years from age 20 until age 22. Risk Values: Shyann 5 year model risk: 2.2%. NCI Lifetime model risk: 6.6%. Technique: Method: Targeted. Prior Study Comparison: 07/10/2021 Bilateral Screening Mammogram, [facility]. 07/12/2022 Bilateral MG 3D screening mammo w/cad, [facility]. 08/02/2023 Bilateral MG 3D screening mammo w/cad, [facility]. Findings: The upper outer quadrant of the right breast, the axilla of the right breast and the retroareolar of the right breast were scanned. Targeted ultrasound upper outer quadrant right breast 9:00 to 12:00 including scanning of the subareolar region and axilla. No solid or cystic lesion or axillary lymphadenopathy. Overall Assessment: Probably benign, BI-RAD 3 Management: Diagnostic Mammogram of the right breast in 6 months. A clinical breast exam by your physician is recommended on an annual basis and results should be correlated with mammographic findings. This exam should not preclude additional follow-up of suspicious palpable abnormalities. Results were given to the patient verbally at the time of exam. Electronically signed and approved by: Alexander Alvarez M.D. Radiologist
== END | disposition home or self-care (01) ==
LOC: RADMAMWWP 08:14
PROVIDERS: ATTEND Obstetrics & Gynecology
DX: R92.331 Mammographic heterogeneous density, right breast (principal); Z78.0 Asymptomatic menopausal state
CPT/HCPCS: 77065; 76642; G0279; 77061

== ENCOUNTER → 2023-12-16 | Outpatient (CLI) | payer MEDICARE, OTHER ==
--- NOTE | 2023-12-16 13:37 | CT ---
EXAMINATION TYPE: CT brain wo con CT DLP: 1121 mGycm, Automated exposure control for dose reduction was used. DATE OF EXAM: 12/16/2023 1:14 PM COMPARISON: None. CLINICAL INDICATION:Female, 68 years old with history of G25.0 ESSENTIAL TREMOR, Essential tremors TECHNIQUE: Brain: Axial CT images of the brain were obtained with coronal and sagittal reformats created and rev iewed. Contrast used: None. Oral contrast used: None. FINDINGS: Brain: Extra-axial spaces: No abnormal extra-axial fluid collections. Ventricular system: Within normal limits Cerebral parenchyma: No acute intraparenchymal hemorrhage or mass effect. The chandler-white junction is well differentiated. Scattered hypoattenuating areas are seen within the white matter. Cerebellum: Unremarkable. Mass effect: No evidence of midline shift. Intracranial vasculature: Atherosclerotic calcifications of the intracranial vessels. Soft tissues: Normal. Calvarium/osseous structures: No depressed skull fracture. Paranasal sinuses and mastoid air cells: Mild scattered paranasal sinus disease. Visualized orbits: Orbital contents are intact. IMPRESSION: 1. No acute intracranial process. 2. Nonspecific white matter changes, likely secondary to chronic small vessel ischemic disease.
== END | disposition home or self-care (01) ==
LOC: RADCTMAIN 12:38
PROVIDERS: ATTEND Psychiatry & Neurology Neurology
DX: G25.0 Essential tremor (principal)
CPT/HCPCS: 70450

== ENCOUNTER → 2024-03-01 | Outpatient (CLI) | payer MEDICARE, OTHER ==
--- NOTE | 2024-03-01 10:10 | MM ---
Reason for Exam: Follow-up at short interval from prior study. Last screening mammogram was performed 7 month(s) ago. Patient History: Menarche at age 13. First Full-Term at age 33. Late child-bearing (after 30). Hysterectomy at age 62. Postmenopausal. Hormonal Contraceptives for 2 years from age 20 until age 22. Risk Values: Shyann 5 year model risk: 2.2%. NCI Lifetime model risk: 6.3%. Prior Study Comparison: 06/22/2017 Right Diagnostic Mammogram, [facility]. 12/25/2018 Bilateral Screening Mammogram, [facility]. 07/07/2020 Bilateral Screening Mammogram, [facility]. 07/10/2021 Bilateral Screening Mammogram, [facility]. 07/12/2022 Bilateral MG 3D screening mammo w/cad, [facility]. 08/02/2023 Bilateral MG 3D screening mammo w/cad, [facility]. 08/04/2023 Right MG 3D work up w/cad RT, [facility]. Tissue Density: Right: There are scattered areas of fibroglandular density. Findings: Analyzed By CAD. The pattern is symmetrical. No significant interval change No suspicious groups of microcalcifications, spiculated or lobular masses, architectural distortion or other secondary signs of malignancy are mammographically apparent. Overall Assessment: Benign, BI-RAD 2 Management: Screening Mammogram of both breasts in 6 months. A negative mammogram report should not preclude additional follow up of suspicious palpable abnormalities. Patient should continue monthly self breast exam. A clinical breast exam by your physician is recommended on an annual basis and results should be correlated with mammographic findings. Note on Shyann scores and lifetime risk: 1. A Shyann score greater than 3% is considered moderate risk. If this is the case, consider specialist referral to assess eligibility for a risk reducing agent. 2. If overall lifetime risk for the development of breast cancer is 20% or higher, the patient may qualify for future screening with alternating mammogram and breast MRI. [facility], , 03/01/2024 9:48 AM. Electronically signed and approved by: Anthony Rodrigez D.O. Radiologis
== END | disposition home or self-care (01) ==
LOC: RADMAMWWP 08:48
PROVIDERS: ATTEND Internal Medicine
CPT/HCPCS: 77061; 77065

== ENCOUNTER → 2024-03-06 | Outpatient (CLI) | payer MEDICARE, OTHER ==
--- NOTE | 2024-03-07 00:30 | XR ---
EXAMINATION TYPE: XR chest 2V DATE OF EXAM: 03/06/2024 COMPARISON: 11/23/2014 INDICATION: Short of breath TECHNIQUE: Frontal and lateral views of the chest are obtained. FINDINGS: The heart size is normal. The pulmonary vasculature is normal. The lungs are clear. IMPRESSION: 1. No acute pulmonary process. [facility], , 03/07/2024 12:28 AM
== END | disposition home or self-care (01) ==
LOC: RADXRYALE 13:32
PROVIDERS: ATTEND Internal Medicine
DX: R06.02 Shortness of breath (principal)
CPT/HCPCS: 71046

== ENCOUNTER 2024-03-14 11:40 | Inpatient (IN) | payer MEDICARE, OTHER ==
--- NOTE | 2024-03-14 11:55 | ED ---
Recheck HPI - General Source: patient, RN notes reviewed Mode of arrival: ambulatory Limitations: no limitations <Vidhya Smith - Last Filed: 03/14/24 11:53> <Ajay Israel - Last Filed: 03/14/24 14:50> - General Chief Complaint: Recheck/Abnormal Lab/Rx Stated Complaint: Blood transfusion-sent by Dr. Barroso Time Seen by Provider: 03/14/24 11:45 - History of Present Illness Initial Comments: Quick Note: This is a 69-year-old female who presents to the emergency department for low hemoglobin. States that she has felt very weak and rundown over the last couple of months. She had blood work done with Dr. Barroso, cardiology. She was told that her hemoglobin was 5.3 and she needed to come to the emergency department. Denies any blood in her stool or dark/tarry stools. She has had minor lower abdominal discomfort and states that her mother of colon cancer. (Vidhya Smith) This is a 69-year-old female who presents to the emergency department because she has been dyspneic the last few weeks. Patient went to see her help desk specialist today and the help desk specialist told her that her hemoglobin is 5.3 and she needed to come to the emergency department. Patient denies any chest pain. Patient is any fever chills or cough. Patient is any black or bloody stools. Patient has any abdominal pain. Patient denies being on a blood thinner. Patient states she does have a family for colon cancer. Patient states her last colonoscopy was probably about 4 years ago. (Ajay Israel) - Related Data Home Medications Medication Instructions Recorded Confirmed Losartan Potassium [Cozaar] 25 mg PO DAILY 10/16/21 03/14/24 Rosuvastatin Calcium [Crestor] 5 mg PO DAILY 03/14/24 03/14/24 Allergies Allergy/AdvReac Type Severity Reaction Status Date / Time Penicillins Allergy Anaphylaxis Verified 03/14/24 14:29 Sulfa (Sulfonamide Allergy Rash/Hives Verified 03/14/24 14:29 Antibiotics) Review of Systems ROS Other: All systems not noted in ROS Statement are negative. <Vidhya Smith - Last Filed: 03/14/24 11:53> ROS Other: All systems not noted in ROS Statement are negative. <Ajay Israel - Last Filed: 03/14/24 14:50> ROS Statement: Those systems with pertinent positive or pertinent negative responses have been documented in the HPI. Past Medical History Past Medical History: Hypertension Additional Past Medical History / Comment(s): change in bowel habits for 5 weeks, just started on BP medication History of Any Multi-Drug Resistant Organisms: None Reported Past Surgical History: Tonsillectomy Additional Past Surgical History / Comment(s): laparoscopy, colonoscopy Past Anesthesia/Blood Transfusion Reactions: Previous Problems w/ Anesthesia Additional Past Anesthesia/Blood Transfusion Reaction / Comment(s): very slow to wake up from anesthesia Past Psychological History: No Psychological Hx Reported Smoking Status: Never smoker - Past Family History Mother Family Medical History: Cancer Additional Family Medical History / Comment(s): colon Father Family Medical History: Cancer <Vidhya Smith - Last Filed: 03/14/24 11:53> General Exam Limitations: no limitations <Vidhya Smith - Last Filed: 03/14/24 11:53> <Ajay Israel - Last Filed: 03/14/24 14:50> - General Exam Comments Initial Comments: Visual Physical Exam Vital signs reviewed General: Well-appearing, nontoxic, no acute distress. Head: Normocephalic, atraumatic Eyes: PERRLA, EOMI ENT: Airway patent Chest: Nonlabored breathing Skin: No visual rash, normal skin tone Neuro: Alert and oriented 3 Musculoskeletal: No gross abnormalities (Vidhya Smith) GENERAL: Patient is well-developed and well-nourished. Patient is nontoxic and well- hydrated and is in mild distress. ENT: Neck is soft and supple. No significant lymphadenopathy is noted. Oropharynx is clear. Moist mucous membranes. Neck has full range of motion without eliciting any pain. EYES: The sclera were anicteric and conjunctiva were pink and moist. Extraocular movements were intact and pupils were equal round and reactive to light. Eyelids were unremarkable. PULMONARY: Unlabored respirations. Good breath sounds bilaterally. No audible rales rhonchi or wheezing was noted. CARDIOVASCULAR: There is a regular rate and rhythm without any murmurs gallops or rubs. ABDOMEN: Soft and nontender with normal bowel sounds. SKIN: Patient is slightly pale NEUROLOGIC: Patient is alert and oriented x3. Cranial nerves II through XII are grossly intact. Motor and sensory are also intact. Normal speech, volume and content. Symmetrical smile. MUSCULOSKELETAL: Normal extremities with adequate strength and full range of motion. LYMPHATICS: No significant lymphadenopathy is noted PSYCHIATRIC: Normal psychiatric evaluation. (Ajay Israel) Course Vital Signs 03/14/24 11:41 Temperature 97.7 F Pulse Rate 108 H Respiratory 20 Rate Blood Pressure 167/71 O2 Sat by Pulse 100 Oximetry Medical Decision Making <Vidhya Smith - Last Filed: 03/14/24 11:53> - Lab Data Result diagrams: 03/14/24 12:50 03/14/24 12:50 <Ajay Israel - Last Filed: 03/14/24 14:50> - Medical Decision Making I performed the QuickNote portion of this chart. Signed Vidhya Smith PA-C. (Vidhya Smith) EKG is interpreted by myself read EKG shows sinus rhythm at 80 bpm MO 149 QRS is 82 QT interval 335 QTc is 370. Patient EKG shows no ST segment elevation or depression. Was pt. sent in by a medical professional or institution (DELANO Flynn, REFUELER, urgent care, hospital, or care home...) When possible be specific @ -Patient was sent in by cardiology Did you speak to anyone other than the patient for history (EMS, parent, family, police, friend...)? What history was obtained from this source @ -I spoke with Dr. Robles before the patient's arrival for the reason for the patient being sent to the emergency department Did you review nursing and triage notes (agree or disagree)? Why? @ -I reviewed and agree with nursing and triage notes Were old charts reviewed (outside hosp., previous admission, EMS record, old EKG, old radiological studies, urgent care reports/EKG's, care home records)? Report findings @ -No old charts were reviewed Differential Diagnosis? @ -Differential Dyspnea: Coronary syndrome, arrhythmia, tamponade, asthma, COPD, pulmonary embolism, pneumonia, pneumothorax, pulmonary effusion, anaphylaxis, diabetic ketoacidosis, flailed chest, pulmonary contusion, diaphragmatic rupture, anemia, neuromuscular, this is not meant to be an all-inclusive list. EKG interpreted by me (3pts min.). @ -As above X-rays interpreted by me (1pt min.). @ -Chest x-ray showed no acute normality CT interpreted by me (1pt min.). @ -None done U/S interpreted by me (1pt. min.). @ -None done What testing was considered but not performed or refused? (CT, X-rays, U/S, labs)? Why? @ -None What meds were considered but not given or refused? Why? @ -None Did you discuss the management of the patient with other professionals (paresh mccarthy i.eRadha Flynn, PA, REFUELER, lab, RT, psych nurse, nephrology social worker, plant security guard, teacher, protective services officer, major case detective)? Give summary @ -I spoke with [facility] hospitalist agreed to admit the patient Was smoking cessation discussed for >3mins.? @ -No Was critical care preformed (if so, how long)? @ -35 minutes Were there social determinants of health that impacted care today? How? (Homelessness, low income, unemployed, alcoholism, drug addiction, transportation, low edu. Level, literacy, decrease access to med. care, alf, rehab)? @ -No Was there de-escalation of care discussed even if they declined (Discuss DNR or withdrawal of care, Hospice)? DNR status @ -No What co-morbidities impacted this encounter? (DM, HTN, Smoking, COPD, CAD, Cancer, CVA, ARF, Chemo, Hep., AIDS, mental health diagnosis, sleep apnea, morbid obesity)? @ -None Was patient admitted / discharged? Hospital course, mention meds given and route, prescriptions, significant lab abnormalities, going to OR and other pertinent info. @ -Patient's hemoglobin was 5.4 patient received 2 units of packed red blood cells Undiagnosed new problem with uncertain prognosis? @ -No Drug Therapy requiring intensive monitoring for toxicity (Heparin, Nitro, Insulin, Cardizem)? @ -No Were any procedures done? @ -No Diagnosis/symptom? @ -Anemia Acute, or Chronic, or Acute on Chronic? @ -Acute Uncomplicated (without systemic symptoms) or Complicated (systemic symptoms)? @ -Complicated Side effects of treatment? @ -No Exacerbation, Progression, or Severe Exacerbation? @ -No Poses a threat to life or bodily function? How? (Chest pain, [place], [place], pneumonia, PE, COPD, DKA, ARF, appy, cholecystitis, CVA, Diverticulitis, Homicidal, Suicid al, threat to staff... and all critical care pts) @ -Yes this could lead to hypoxia and endorgan dysfunction (Ajya Israel) - Lab Data Lab Results 03/14/24 03/14/24 03/14/24 Range/Units 12:50 12:50 12:50 WBC 3.5 L (3.8-10.6) k/uL RBC 1.56 L (3.80-5.40) m/uL Hgb 5.4 L* (11.4-16.0) gm/dL Hct 15.6 L* (34.0-46.0) % MCV 100.1 H (80.0-100.0) fL MCH 34.6 (25.0-35.0) pg MCHC 34.6 (31.0-37.0) g/dL RDW 16.7 H (11.5-15.5) % Plt Count 340 (150-450) k/uL MPV 8.5 Neutrophils % 54 % Lymphocytes % 33 % Monocytes % 3 % Eosinophils % 9 % Basophils % 0 % Neutrophils # 1.9 (1.3-7.7) k/uL Lymphocytes # 1.1 (1.0-4.8) k/uL Monocytes # 0.1 (0-1.0) k/uL Eosinophils # 0.3 (0-0.7) k/uL Basophils # 0.0 (0-0.2) k/uL Anisocytosis Slight Macrocytosis Slight PT 10.5 (10.0-12.5) sec INR 0.9 (<1.2) APTT 23.4 (22.0-30.0) sec Sodium 140 (137-145) mmol/L Potassium 4.1 (3.5-5.1) mmol/L Chloride 110 H (98-107) mmol/L Carbon Dioxide 23 (22-30) mmol/L Anion Gap 7 mmol/L BUN 14 (7-17) mg/dL Creatinine 0.64 (0.52-1.04) mg/dL Est GFR (CKD-EPI)AfAm >90 (>60 ml/min/1.73 sqM) Est GFR (CKD-EPI)NonAf >90 (>60 ml/min/1.73 sqM) Glucose 105 H (74-99) mg/dL Calcium 9.3 (8.4-10.2) mg/dL Total Bilirubin 0.4 (0.2-1.3) mg/dL AST 21 (14-36) U/L ALT 24 (4-34) U/L Alkaline Phosphatase 76 (38-126) U/L Total Protein 7.0 (6.3-8.2) g/dL Albumin 4.6 (3.5-5.0) g/dL Disposition <Vidhya Smith - Last Filed: 03/14/24 11:53> Time of Disposition: 14:43 <Ajay Israel - Last Filed: 03/14/24 14:50> Clinical Impression: Anemia Disposition: ADMITTED IP TO THIS HOSP Referrals: Clarita Borrego MD [Primary Care Provider] - 1-2 days
[2024-03-14 13:20] LABS: ALT 24 U/L (4-34); AST 21 U/L (14-36); African American GFR (CKD) >90 (>60 ml/min/1.73 sqM); Albumin 4.6 g/dL (3.5-5.0); Alkaline Phosphatase 76 U/L (38-126); Anion Gap 7 mmol/L; Blood Urea Nitrogen 14 mg/dL (7-17); Calcium 9.3 mg/dL (8.4-10.2); Carbon Dioxide 23 mmol/L (22-30); Chloride 110 mmol/L (98-107); Glucose 105 mg/dL (74-99); INR 0.9 (<1.2); Non-African American GFR(CKD) >90 (>60 ml/min/1.73 sqM); Partial Thromboplastin Time 23.4 sec (22.0-30.0); Potassium 4.1 mmol/L (3.5-5.1); Prothrombin Time 10.5 sec (10.0-12.5); Sodium 140 mmol/L (137-145); Total Bilirubin 0.4 mg/dL (0.2-1.3)
[2024-03-14 13:25] LABS: Anisocytosis Slight; Basophils % (A) 0 %; Eosinophils # (A) 0.3 k/uL (0-0.7); Eosinophils % (A) 9 %; Lymphocytes # (A) 1.1 k/uL (1.0-4.8); Lymphocytes % (A) 33 %; MCH 34.6 pg (25.0-35.0); MCHC 34.6 g/dL (31.0-37.0); MCV 100.1 fL (80.0-100.0); Macrocytosis Slight; Mean Platelet Volume 8.5; Monocytes # (A) 0.1 k/uL (0-1.0); Monocytes % (A) 3 %; Neutrophils # (A) 1.9 k/uL (1.3-7.7); Neutrophils % (A) 54 %; Platelet Count 340 k/uL (150-450); RBC 1.56 m/uL (3.80-5.40); RDW 16.7 % (11.5-15.5); WBC 3.5 k/uL (3.8-10.6)
[2024-03-14 13:27] LABS: HCT 15.6 % (34.0-46.0); HGB 5.4 gm/dL (11.4-16.0)
[2024-03-15 08:27] LABS: Basophils # (A) 0.01 X 10*3/uL (0.00-0.10); Basophils % (A) 0.3 %; Eosinophils # (A) 0.01 X 10*3/uL (0.04-0.35); Eosinophils % (A) 0.3 %; HCT 22.5 % (37.2-46.3); HGB 7.9 g/dL (12.0-15.0); Lymphocytes # (A) 1.44 X 10*3/uL (0.90-5.00); Lymphocytes % (A) 38.6 %; MCH 33.5 pg (27.0-32.0); MCHC 35.1 g/dL (32.0-37.0); MCV 95.3 FL (80.0-97.0); Mean Platelet Volume 9.4 FL (9.5-12.2); Monocytes # (A) 0.18 X 10*3/uL (0.20-1.00); Monocytes % (A) 4.8 %; NRBC Per 100 WBC 0 X 10*3/uL (0.00-0.01); Neutrophils # (A) 2.02 X 10*3/uL (1.80-7.70); Neutrophils % (A) 54.1 %; Platelet Count 188 X 10*3/uL (140-440); RBC 2.36 X 10*6/uL (4.10-5.20); RDW 16.2 % (11.5-14.5); WBC 3.73 X 10*3/uL (4.50-10.00)
[2024-03-15] MEDS: LOSARTAN 25 MG TAB PO SCH (12:26)
--- NOTE | 2024-03-15 12:56 | XR ---
EXAMINATION TYPE: XR abdomen complete w decub DATE OF EXAM: 03/15/2024 HISTORY: Pain. Technique: 4 views of the abdomen are submitted. Comparison: None. Findings: There is no convincing evidence of pneumoperitoneum. The Bowel gas pattern is nonspecific and nonobstructive. No sizable air-fluid levels are seen. No mass effects are noted. No renal calcifications are identified. IMPRESSION: 1. Nonspecific nonobstructive bowel gas pattern [facility], , 03/15/2024 12:54 PM
[2024-03-15 15:29] LABS: Basophils # (A) 0 X 10*3/uL (0.00-0.10); Basophils % (A) 0 %; Eosinophils # (A) 0.01 X 10*3/uL (0.04-0.35); Eosinophils % (A) 0.2 %; HCT 23.7 % (37.2-46.3); HGB 8.1 g/dL (12.0-15.0); Lymphocytes # (A) 1.06 X 10*3/uL (0.90-5.00); MCH 32.8 pg (27.0-32.0); MCHC 34.2 g/dL (32.0-37.0); Mean Platelet Volume 9.7 FL (9.5-12.2); Monocytes # (A) 0.18 X 10*3/uL (0.20-1.00); Monocytes % (A) 4.4 %; NRBC Per 100 WBC 0 X 10*3/uL (0.00-0.01); Neutrophils # (A) 2.65 X 10*3/uL (1.80-7.70); Platelet Count 186 X 10*3/uL (140-440); RBC 2.47 X 10*6/uL (4.10-5.20); RDW 16.5 % (11.5-14.5); WBC 4.08 X 10*3/uL (4.50-10.00)
[2024-03-15 16:31] LABS: % Iron Saturation 83.98 (12.00-45.00); Iron 283 UG/DL (50-170); Total Iron Binding Capacity 337 UG/DL (228-460)
[2024-03-15 17:00] LABS: Vitamin B12 >3600.0 pg/mL (200.0-944.0)
[2024-03-15] MEDS: HEPARIN SODIUM,PORCINE 5,000 UNIT/ML 1 ML VIAL SQ SCH (20:20)
--- NOTE | 2024-03-15 23:23 | P.HPIM ---
History of Present Illness H&P Date: 03/15/24 Chief Complaint: Low hemoglobin Patient is a 69-year-old female with a past medical history of hypertension and hyperlipidemia was sent to ER due to low hemoglobin level. Patient says that she has been feeling weak and difficulty breathing for the past 4 weeks. She was seen by her primary care physician about 2 weeks ago. Patient had blood workup done and was referred to cardiology. Patient was seen by Dr. Gee in the clinic and blood workup showed hemoglobin level of 5.3. Patient was sent to ER for further evaluation. Otherwise patient denied any hematemesis or melena. FOBT is negative. Denied any complaints of chest pain. Otherwise patient states that she has been having lower abdominal discomfort. She was treated for urinary tract infection and completed antibiotics with Cipro about a week ago. Patient had prior colonoscopy 2 years ago. Patient also states that her mom pete was diagnosed with colon cancer and perforated bowel at that time. Denies any recent weight loss. No loss of appetite. Laboratory data showed WBC 3.5 hemoglobin 5.4 and platelets 340 RDW 16.7 Sodium 140 potassium 4.1 chloride 110 bicarb is 23 BUN 14 and creatinine 0.64 and blood sugar 105 liver is not elevated. FOBT negative Review of Systems Constitutional: Patient denies any fever or chills . No generalized weakness or weight loss. Abdomen: Patient denied nausea vomiting and diarrhea and abdominal pain. Cardiovascular: Patient denies any chest pain or short of breath no palpitations. Respiratory: patient denied any cough or sputum production. No shortness of breath Neurologic: Patient denied any numbness or tingling. no headache. Musculoskeletal: Patient denies any complaints of joint swelling or deformity. Skin: Negative Psychiatric: Negative Endocrine: No heat or cold intolerance. No recent weight gain. Genitourinary: No dysuria or hematuria. All other 14 point ROS negative except the above Past Medical History Past Medical History: Hypertension Additional Past Medical History / Comment(s): change in bowel habits for 5 weeks, just started on BP medication History of Any Multi-Drug Resistant Organisms: None Reported Past Surgical History: Hysterectomy, Tonsillectomy Additional Past Surgical History / Comment(s): laparoscopy, colonoscopy Past Anesthesia/Blood Transfusion Reactions: Previous Problems w/ Anesthesia Additional Past Anesthesia/Blood Transfusion Reaction / Comment(s): very slow to wake up from anesthesia Past Psychological History: No Psychological Hx Reported Smoking Status: Never smoker Past Alcohol Use History: None Reported Past Drug Use History: None Reported - Past Family History Mother Family Medical History: Cancer Additional Family Medical History / Comment(s): colon Father Family Medical History: Cancer Medications and Allergies Home Medications Medication Instructions Recorded Confirmed Type Losartan Potassium [Cozaar] 25 mg PO DAILY 10/16/21 03/14/24 History Rosuvastatin Calcium [Crestor] 5 mg PO DAILY 03/14/24 03/14/24 History Allergies Allergy/AdvReac Type Severity Reaction Status Date / Time Penicillins Allergy Anaphylaxis Verified 03/14/24 14:29 Sulfa (Sulfonamide Allergy Rash/Hives Verified 03/14/24 14:29 Antibiotics) Physical Exam Vitals: Vital Signs Temp Pulse Pulse Resp BP BP Pulse Ox 03/15/24 10:44 98.3 F 74 16 153/71 98 03/15/24 09:49 98.4 F 77 18 148/75 100 03/15/24 07:31 98.0 F 85 18 142/77 99 03/15/24 06:00 75 17 132/72 99 03/15/24 01:54 98.6 F 72 16 134/73 98 03/15/24 00:00 71 16 130/70 99 03/14/24 23:30 68 18 134/63 89 L 03/14/24 23:00 98.8 F 67 18 130/67 99 03/14/24 22:25 98.4 F 73 18 130/62 98 03/14/24 22:18 98.7 F 78 16 138/70 99 03/14/24 22:05 98.6 F 74 18 133/65 99 03/14/24 21:55 98.9 F 77 16 140/71 97 03/14/24 19:55 98.6 F 87 18 135/75 99 03/14/24 19:30 98.4 F 84 18 135/75 99 03/14/24 19:00 98.4 F 83 18 140/69 98 03/14/24 18:38 98.5 F 81 18 140/70 98 03/14/24 18:08 98.7 F 82 18 142/69 99 03/14/24 17:48 98.4 F 85 17 142/69 99 03/14/24 17:35 98.5 F 84 19 151/69 97 03/14/24 16:19 80 18 146/66 97 03/14/24 11:41 97.7 F 108 H 20 167/71 100 Intake and Output 03/14/24 03/15/24 03/15/24 22:59 06:59 14:59 Intake Total 310 310 Balance 310 310 Intake: Blood Product 310 310 Rc As-1 Unit 0 310 [id number] Rc As-1 Unit 310 [id number] Other: Weight 63.503 kg PHYSICAL EXAMINATION: Patient is lying in the bed comfortably, no acute distress, awake alert and oriented.. HEENT: Normocephalic. Neck is supple. Pupils reactive. Nostrils clear. Oral cavity is moist. Neck reveals no JVD, carotid bruits, or thyromegaly. CHEST EXAMINATION: Trachea is central. Symmetrical expansion. Lung kellogg clear to auscultation and percussion. CARDIAC: Normal S1, S2 with no gallops. No murmurs ABDOMEN: Soft. Bowel sounds normal. No organomegaly. No abdominal bruits. Extremities: reveal no edema. No clubbing or cyanosis Neurologically awake, alert, oriented x3 with well-coordinated movements. No focal deficits noted Skin: No rash or skin lesions. Psychiatric: Coperative. Nonsuicidal Musculoskeletal: No joint swelling or deformity. Normal range of motion. Results CBC & Chem 7: 03/15/24 11:06 03/14/24 12:50 Labs: Abnormal Lab Results - Last 24 Hours (Table) 03/14/24 03/14/24 03/14/24 Range/Units 12:50 12:50 15:27 WBC 3.5 L (3.8-10.6) k/uL RBC 1.56 L (3.80-5.40) m/uL Hgb 5.4 L* (11.4-16.0) gm/dL Hct 15.6 L* (34.0-46.0) % MCV 100.1 H (80.0-100.0) fL MCH (27.0-32.0) pg RDW 16.7 H (11.5-15.5) % MPV (9.5-12.2) FL Immature Gran # (0.00-0.04) X 10*3/uL Monocytes # (0.20-1.00) X 10*3/uL Eosinophils # (0.04-0.35) X 10*3/uL Chloride 110 H (98-107) mmol/L Glucose 105 H (74-99) mg/dL Crossmatch See Detail 03/15/24 Range/Units 06:10 WBC 3.73 L (3.8-10.6) k/uL RBC 2.36 L (3.80-5.40) m/uL Hgb 7.9 L (11.4-16.0) gm/dL Hct 22.5 L (34.0-46.0) % MCV (80.0-100.0) fL MCH 33.5 H (27.0-32.0) pg RDW 16.2 H (11.5-15.5) % MPV 9.4 L (9.5-12.2) FL Immature Gran # 0.07 H (0.00-0.04) X 10*3/uL Monocytes # 0.18 L (0.20-1.00) X 10*3/uL Eosinophils # 0.01 L (0.04-0.35) X 10*3/uL Chloride (98-107) mmol/L Glucose (74-99) mg/dL Crossmatch Thrombosis Risk Factor Assmnt - DVT/VTE Prophylaxis DVT/VTE Prophylaxis: Pharmacologic Prophylaxis ordered - Choose All That Apply Any of the Below Risk Factors Present?: No Each Risk Factor Represents 2 Points: Age 61-74 years Thrombosis Risk Factor Assessment Total Risk Factor Score: 2 Thrombosis Risk Factor Assessment Level: Low Risk Assessment and Plan Assessment: Symptomatic anemia with hemoglobin 5.4 admission status post 2 unit PRBC transfusion. Hemoglobin improved to 7.9 Generalized weakness, shortness of breath and exertional dyspnea secondary to above. Hypertension Hyperlipidemia DVT prophylaxis with heparin subcu Plan: Continue to monitor H&H. Patient denies any hematemesis or melena. No complaints of chest pain or shortness of breath. Obtain iron profile, B12 and folate levels and TSH level. Hematology consult for further evaluation of anemia. Continue to follow closely. Repeat UA was ordered. Follow-up CBC and BMP tomorrow. Time with Patient: Greater than 30
[2024-03-16 06:04] LABS: Basophils % (A) 0 %; Eosinophils # (A) 0.2 k/uL (0-0.7); Eosinophils % (A) 4 %; HCT 25.1 % (34.0-46.0); Lymphocytes # (A) 1.2 k/uL (1.0-4.8); Lymphocytes % (A) 32 %; MCH 32.6 pg (25.0-35.0); MCV 95.8 fL (80.0-100.0); Monocytes # (A) 0.1 k/uL (0-1.0); Monocytes % (A) 3 %; Neutrophils # (A) 2.3 k/uL (1.3-7.7); Neutrophils % (A) 58 %; Platelet Count 266 k/uL (150-450); RBC 2.62 m/uL (3.80-5.40); RDW 15.4 % (11.5-15.5); WBC 3.9 k/uL (3.8-10.6)
[2024-03-16 06:07] LABS: HGB 8.5 gm/dL (11.4-16.0)
[2024-03-16 06:47] LABS: Amorphous Sediment,Urine Rare /hpf; Appearance,Urine Clear (Clear); Bacteria,Urine Rare /hpf; Bilirubin,Urine Negative (Negative); Blood,Urine Small (Negative); Color,Urine Colorless; Glucose,Urine (UA) Negative (Negative); Hyaline Casts,Urine 1 /lpf (0-2); Ketones,Urine Negative (Negative); Leukocyte Esterase,Urine Moderate (Negative); Mucus,Urine Rare /hpf; Nitrite,Urine Negative (Negative); PH, Urine 5.5 (5.0-8.0); Protein,Urine Negative (Negative); RBC,Urine 2 /hpf (0-5); Squamous Epithelial Cell,Urine 3 /hpf (0-4); Urobilinogen,Urine <2.0 mg/dL (<2.0); WBC,Urine 6 /hpf (0-5)
[2024-03-16 08:16] VITALS: TEMP 98.2
[2024-03-16] MEDS: ATORVASTATIN 10 MG TAB PO SCH (08:27)
[2024-03-16 08:42] LABS: Blood Urea Nitrogen 9.9 mg/dL (9.0-27.0); Calcium 8.9 mg/dL (8.7-10.3); Carbon Dioxide 25.5 mmol/L (21.6-31.8); Chloride 107 mmol/L (96-109); Glucose 100 mg/dL (70-110); Potassium 4.3 mmol/L (3.5-5.5); Sodium 141 mmol/L (135-145)
[2024-03-16 13:34] VITALS: BP 145/76; PULSE 64; RESP 15
--- NOTE | 2024-03-20 10:56 | P.DS ---
Providers Date of admission: 03/14/24 14:48 Expected date of discharge: 03/16/24 Attending physician: Gloria Sauer Primary care physician: Clarita Borrego Hospital Course: Final diagnosis Symptomatic anemia with hemoglobin 5.4 admission status post 2 unit PRBC transfusion. Hemoglobin improved to 8.5 Generalized weakness, shortness of breath and exertional dyspnea secondary to above. Hypertension Hyperlipidemia DVT prophylaxis with heparin subcu GI prophylaxis Full code Discharge disposition Patient is being discharged in a stable condition with guarded prognosis to home. Patient will follow-up with Dr. Borrego in the outpatient setting upon discharge. Patient is to follow-up with GI and also hematology outpatient as scheduled. Prescription provided for repeat labs to monitor CBC. Total time taken is greater than 35 minutes. Hospital course This is a 69-year-old female who was recently admitted with increasing shortness of breath with generalized weakness and exertional dyspnea ongoing and found to have symptomatic anemia with a hemoglobin of 5.4 on admission. Patient received 2 units of PRBCs and hemoglobin is stable at 8.5 with no active bleeding noted. Patient will follow-up with hematology along with GI in the outpatient setting for further evaluation of this anemia. Prescription provided for repeat labs to monitor hemoglobin and discussed with the patient to follow-up with primary care provider this week. If feeling symptomatic call 911 or nearest emergency department. Patient reports to feeling significantly improved status posttransfusion and reports she will follow-up in the outpatient setting with consultations. Currently no reports of chest pain, shortness of breath, or palpitations. Patient is afebrile. Patient denies any blood in the stool, dark tarry stools, or any hematemesis, epistaxis, or any bleeding noted elsewhere. No reports of nausea or vomiting and patient is tolerating diet. Patient will be discharged home today. Guarded prognosis. Physical exam: Gen: This is a 69-year-old female who is awake, alert and oriented x 3, well- developed, well-nourished HEENT: Head is atraumatic, normocephalic. Pupils equal, round. Sclerae is anicteric. NECK: Supple. No JVD. No lymphadenopathy. No thyromegaly. LUNGS: Clear to auscultation. No wheezes or rhonchi. No intercostal retractions. HEART: Regular rate and rhythm. No murmur. ABDOMEN: Soft. Bowel sounds are present. No masses. No tenderness. EXTREMITIES: No pedal edema. No calf tenderness. NEUROLOGICAL: Patient is awake, alert and oriented x3. Cranial nerves 2 through 12 are grossly intact. Please refer to medication reconciliation sheet for a list of medications. The impression and plan of care has been dictated by Kamala Sprague, Nurse Practitioner as directed. Dr. Cristiane MD I have performed a history and examination and MDM of this patient, discussed the same with the dictator, and agree with the dictator's assessment and plan as written ,documented as a scribe. Based on total visit time, I have performed more than 50% of the visit. Patient Condition at Discharge: Stable Plan - Discharge Summary New Discharge Prescriptions: Continue Losartan Potassium [Cozaar] 25 mg PO DAILY Rosuvastatin Calcium [Crestor] 5 mg PO DAILY Discharge Medication List Losartan Potassium [Cozaar] 25 mg PO DAILY 10/16/21 [History] Rosuvastatin Calcium [Crestor] 5 mg PO DAILY 03/14/24 [History] Follow up Appointment(s)/Referral(s): Luis Golden MD [STAFF PHYSICIAN] - 1 Week (Hemotologist The office will call you with appointment information) Sun Barroso MD [STAFF PHYSICIAN] - 03/29/24 9:30 am (will be seeing Tammy Chi NP) Clarita Borrego MD [Primary Care Provider] - 03/19/24 11:40 am Ambulatory/Diagnostic Orders: Complete Blood Count w/diff [LAB.AMB] Time Frame: 1 Week, Location: None Selected Patient Instructions/Handouts: Anemia (DC) Activity/Diet/Wound Care/Special Instructions: Activity limited until follow-up Follow-up with primary care provider on discharge Follow-up with GI outpatient Follow-up with hematology outpatient for further anemia workup Discharge Disposition: HOME SELF-CARE
== END 2024-03-16 14:08 | disposition home or self-care (01) | DRG 812 ==
LOC: EC 11:40 → 5NMEDONC 14:48
PROVIDERS: ADMIT Internal Medicine; ATTEND Internal Medicine
PROC: 30233N1 Transfusion of Nonautologous Red Blood Cells into Peripheral Vein, Percutaneous Approach (ICD-10-PCS; principal; 2024-03-14)
DX: D64.9 Anemia, unspecified (principal); I10 Essential (primary) hypertension; E78.5 Hyperlipidemia, unspecified; Z79.899 Other long term (current) drug therapy
CPT/HCPCS: 36415; 74021; 80048; 80053; 81001; 82272; 82607; 82747; 83540; 83550; 84443; 85025; 85610; 85730; 86850; 86900; 86901; 86920; 93005; 99291

== ENCOUNTER → 2024-03-14 | Outpatient (CLI) | payer MEDICARE, OTHER ==
[2024-03-14 09:11] LABS: Anisocytosis Slight; MCH 35.4 pg (25.0-35.0); MCHC 34.7 g/dL (31.0-37.0); Macrocytosis Moderate; Mean Platelet Volume 8.6; Platelet Count 339 k/uL (150-450); RBC 1.55 m/uL (3.80-5.40); RDW 16.4 % (11.5-15.5)
[2024-03-14 09:26] LABS: African American GFR (CKD) >90 (>60 ml/min/1.73 sqM); Anion Gap 10 mmol/L; Blood Urea Nitrogen 11 mg/dL (7-17); Calcium 9.2 mg/dL (8.4-10.2); Carbon Dioxide 24 mmol/L (22-30); Chloride 107 mmol/L (98-107); Glucose 106 mg/dL (74-99); Non-African American GFR(CKD) 90 (>60 ml/min/1.73 sqM); Potassium 4.2 mmol/L (3.5-5.1); Sodium 141 mmol/L (137-145)
[2024-03-14 09:32] LABS: HCT 15.8 % (34.0-46.0); HGB 5.5 gm/dL (11.4-16.0)
[2024-03-14 09:35] LABS: NT-Pro-B-Type Natriuretic Pept 84 pg/mL
== END | disposition home or self-care (01) ==
LOC: LABWHC1 08:38
PROVIDERS: ATTEND Internal Medicine Cardiovascular Disease
DX: R06.02 Shortness of breath (principal)
CPT/HCPCS: 36415; 80048; 83880; 84443; 85027; 85379

== ENCOUNTER 2024-03-23 06:42 | Day surgery (SDC) | payer MEDICARE, OTHER ==
[2024-03-23 07:27] VITALS: TEMP 97.8
[2024-03-23] MEDS: LACTATED RINGERS 1,000 ML IV SCH (07:28)
[2024-03-23] MEDS: IV FLUID CONTINUATION 1,000 ML IV ONE (07:28)
[2024-03-23] MEDS ORDERED: LIDOCAINE 1% INJ 10MG/ML (20 ML MDV) ONE (08:00)
[2024-03-23] MEDS ORDERED: PROPOFOL 10 MG/ML 20 ML VIAL IV ONE (08:00)
--- NOTE | 2024-03-23 08:34 | P.PCN ---
Date of Procedure: 03/23/24 Procedure(s) Performed: Brief history: Patient is a pleasant 69-year-old white female scheduled for an elective upper endoscopy as well as colonoscopy as a part of evaluation of severe symptomatic anemia and hemoglobin of 5.5 g/dL requiring clearance of PRBC transfusion last week. She denies any GI symptoms. She does have family history of colon cancer in her mother. Procedure performed: Esophagogastroduodenoscopy biopsy Colonoscopy with biopsy Preoperative diagnosis: Severe symptomatic anemia with a hemoglobin of 5 g/dL Anesthesia: MAC Procedure: After informed consent was obtained from the patient was brought into the endoscopy unit and IV sedation was administered by anesthesia under continuous monitoring. Initially upper endoscopy was done. The Olympus GF 160 video endoscope was inserted inserted into the mouth and esophagus intubated without any difficulty and was gradually advanced into the stomach and duodenum and carefully examined. The bulb and second part of the duodenum appeared normal. Biopsies were done from the duodenum to rule out celiac disease. The scope was then withdrawn into the stomach adequately insufflated with air and upon careful examination the antrum had patchy areas of erythema consistent with gastritis and biopsies were done from this area. Mucosa of the body, cardia and fundus appeared normal. The scope was then withdrawn into the esophagus. The GE junction was located at 40 cm to the incisors. It appeared regular with no erythema erosions or ulcerations. Rest of the esophagus appeared normal. Patient tolerated the procedure well. At this time the patient continued to remain sedation. Initial digital rectal examination was normal. Olympus CF 160 video colonoscope was then inserted into the rectum and gradually advanced to the cecum without any difficulty. Careful examination was performed as the scope was gradually being withdrawn. The prep was excellent. The cecum, had a 3 mm sessile polyp that was removed by cold biopsy. Rest of the ascending colon, transverse colon, descending colon, sigmoid colon and rectum appeared normal. Scattered sigmoid diverticulosis. Retroflexion was performed in the rectum and no lesions were noted. Patient tolerated the procedure well. Impression: 1. Upper endoscopy revealed small hiatal hernia and mild antral gastritis 2. Colonoscopy revealed 3 mm cecal polyp status post cold biopsy and scattered sigmoid diverticulosis Recommendations: Findings of this examination were discussed with the patient as well as her family. She was advised to follow-up with the biopsy results. Recommended repeat colonoscopy in 5 years because of the family history of colon cancer
[2024-03-23 08:44] VITALS: RESP 16
[2024-03-23 09:04] VITALS: BP 122/73; PULSE 75
== END 2024-03-23 09:32 | disposition home or self-care (01) ==
LOC: ORWHC2ENDO 06:42
PROVIDERS: ATTEND Internal Medicine Gastroenterology
CPT/HCPCS: 43239; 45380; 88305

== ENCOUNTER → 2024-03-26 | Outpatient (CLI) | payer MEDICARE, OTHER ==
--- NOTE | 2024-03-26 15:27 | CA ---
Transthoracic Echo Report Name: Denisha Parisi Age: 69 Gender: F : 1955 Exam Date: 03/26/2024 14:23 Exam Location: [facility] Ht (in): 63 Wt (lb): 144 Ordering Physician: Diana Quinones MD Attending/Referring Phys: Automotive Manufacturer Tammy Crisostomo RDCS Procedure CPT: Indications: G45.9 TRANSIENT CEREBRAL ISCHEMIC ATTACK, U R47.89 Cardiac Hx: Technical Quality: Good Contrast 1: Agitated Saline Total Dose (mL): Contrast 2: Total Dose (mL): MEASUREMENTS (Male / Female) Normal Values 2D ECHO LV Diastolic Diameter PLAX 4.3 cm 4.2 - 5.9 / 3.9 - 5.3 cm LV Systolic Diameter PLAX 2.7 cm IVS Diastolic Thickness 1.0 cm 0.6 - 1.0 / 0.6 - 0.9 cm LVPW Diastolic Thickness 1.3 cm 0.6 - 1.0 / 0.6 - 0.9 cm LV Relative Wall Thickness 0.5 RV Internal Dim ED PLAX 2.0 cm LA Systolic Diameter LX 3.6 cm 3.0 - 4.0 / 2.7 - 3.8 cm LV Diastolic Volume MOD BP 56.7 cm??? 67 - 155 / 56 - 104 cm??? LV Systolic Volume MOD BP 18.6 cm??? 22 - 58 / 19 - 49 cm??? LV Ejection Fraction MOD BP 67.3 % >= 55 % LV Cardiac Index MOD BP 1399.3 cm???/min???m??? LV Diastolic Volume MOD 4C 56.2 cm??? LV Systolic Volume MOD 4C 15.2 cm??? LV Ejection Fraction MOD 4C 73.0 % LV Cardiac Index MOD 4C 1504.2 cm???/min???m??? LV Diastolic Length 4C 7.0 cm LV Systolic Length 4C 5.3 cm LV Diastolic Volume MOD 2C 55.8 cm??? LV Systolic Volume MOD 2C 20.3 cm??? LV Ejection Fraction MOD 2C 63.6 % LV Cardiac Index MOD 2C 1300.9 cm???/min???m??? LV Diastolic Length 2C 6.8 cm LV Systolic Length 2C 6.1 cm LA Volume 37.7 cm??? 18 - 58 / 22 - 52 cm??? LA Volume Index 21.9 cm???/m??? 16 - 28 cm???/m??? M-MODE Aortic Root Diameter MM 2.8 cm LA Systolic Diameter MM 2.8 cm LA Ao Ratio MM 1.0 AV Cusp Separation MM 1.6 cm DOPPLER AV Peak Velocity 155.2 cm/s AV Peak Gradient 9.6 mmHg MV Area PHT 3.2 cm??? Mitral E Point Velocity 100.2 cm/s Mitral A Point Velocity 120.0 cm/s Mitral E to A Ratio 0.8 MV Deceleration Time 238.3 ms TR Peak Velocity 237.9 cm/s TR Peak Gradient 22.6 mmHg Right Ventricular Systolic Press 26.9 mmHg FINDINGS Left Ventricle Left ventricular ejection fraction is estimated at 55-60%. Mildly increased septal wall thickness. Mildly increased posterior wall thickness.Normal left ventricular systolic function with no obvious regional wall motion abnormalities. Left ventricular cavity size normal. Right Ventricle Normal right ventricular size and function. Right ventricular systolic pressure within normal limits. Right Atrium Normal right atrial size. Negative agitated saline bubble study for right to left shunt. Left Atrium Normal left atrial size. Mitral Valve Structurally normal mitral valve. Trace to mild mitral regurgitation. No mitral stenosis. Aortic Valve Trileaflet aortic valve. No aortic valve stenosis or regurgitation. Tricuspid Valve Structurally normal tricuspid valve. Trace to mild tricuspid regurgitation. No tricuspid stenosis. Pulmonic Valve Structurally normal pulmonic valve. Trace pulmonic regurgitation. No pulmonic stenosis. Pericardium No pericardial or pleural effusion. Aorta Normal size aortic root and proximal ascending aorta. CONCLUSIONS Left ventricular ejection fraction 55-60% Mildly increased left ventricular wall thickness RVSP 27 Negative bubble study Trace to mild tricuspid regurgitation Previewed by: Dr. Rah Byers DO (Electronically Signed) Final Date: 26 March 2024 15:26
== END | disposition home or self-care (01) ==
LOC: RADECHMAIN 14:09
PROVIDERS: ATTEND Psychiatry & Neurology Neurology
DX: G45.9 Transient cerebral ischemic attack, unspecified (principal); R47.89 Other speech disturbances
CPT/HCPCS: 93306

== ENCOUNTER → 2024-03-27 | Outpatient (CLI) | payer MEDICARE, OTHER ==
--- NOTE | 2024-03-27 09:15 | MR ---
EXAMINATION TYPE: MR brain wo con DATE OF EXAM: 03/27/2024 7:56 AM COMPARISON: CT brain 12/16/2023. CLINICAL INDICATION:Female, 69 years old with history of R47.89 word find difficulty; PHH, TECHNIQUE: Multi planar, multi sequence imaging was performed through the brain. No gadolinium was gi greg. FINDINGS: The chandler-white junctions, ventricular system, and cisterns appear unremarkable. Age-appropriate cereb ral volume. Patchy areas of high T2/FLAIR signal intensity are seen within the periventricular and multani bcortical white matter. Midline structures show no abnormality. Diffusion-weighted imaging shows no e vidence of restricted diffusion. The susceptibility weighted images do not reveal any evidence for mi microfabrication engineer manager-hemorrhage. The bone marrow signal is within normal limits. The paranasal sinuses and globes are unremarkable. IMPRESSION: 1. No evidence of intracranial mass or acute/subacute infarct. 2. Nonspecific white matter changes, likely secondary to small vessel ischemic disease. [facility], , 03/27/2024 9:13 AM
--- NOTE | 2024-03-27 09:21 | MR ---
CLINICAL INDICATION: Female 69 years old with a history of G45.9 TIA. COMPARISON: No prior. TECHNIQUE: Multiplanar, multi-sequence imaging as well as [id number] and phase contrast imaging w as performed extracranial vasculature of the neck. The patient was given 6.5 cc of Gadavist intraven ously. 3-D reformatted images and maximum intensity projection reformatted images were submitted for evaluation. NASCET criteria was utilized. FINDINGS: RIGHT CAROTID SYSTEM: The right common carotid artery and external carotid artery are unrem arkable. The carotid bifurcation is unremarkable. The internal carotid artery demonstrates a normal s ize and demonstrates no significant narrowing. LEFT CAROTID SYSTEM: The left common carotid artery and external carotid artery are unremarkable. Th e carotid bifurcation is unremarkable. The internal carotid artery demonstrates a normal size and dem onstrates no significant narrowing. The origins of the great vessels and vertebral arteries appear unremarkable. The vertebral arteries a re codominant. Incidental origin of the right THERAPY TEACHER. IMPRESSION: No significant stenosis involving the carotid arterial systems identified. [facility], , 03/27/2024 9:19 AM
== END | disposition home or self-care (01) ==
LOC: RADMRIMAIN 06:31
PROVIDERS: ATTEND Psychiatry & Neurology Neurology
DX: G45.9 Transient cerebral ischemic attack, unspecified (principal); G25.0 Essential tremor; R47.89 Other speech disturbances
CPT/HCPCS: 70549; 70551